=== PATIENT | female | born 1955 | race Caucasian/White ===

== ENCOUNTER 2020-07-03 11:52 | Day surgery (SDC) | payer BC ==
[2020-06-28 18:06] VITALS: BMI 18.8
[2020-07-03] MEDS ORDERED: ROPIVACAINE HCL 0.5% 30ML VIAL ONE (12:02)
[2020-07-03] MEDS ORDERED: MIDAZOLAM HCL 2 MG/2 ML SINGLE DOSE VIAL ONE (12:02)
[2020-07-03] MEDS ORDERED: DEXAMETHASONE SOD PHOSPHATE 10 MG/1 ML VIAL ONE (12:02)
[2020-07-03] MEDS ORDERED: ceFAZolin SODIUM 1 GM VIAL ONE (14:06)
[2020-07-03] MEDS ORDERED: TRANEXAMIC ACID 1000 MG/10 ML VIAL ONE (14:08)
[2020-07-03] MEDS ORDERED: ONDANSETRON 4 MG/2 ML VIAL ONE (14:14)
[2020-07-03] MEDS ORDERED: DEXAMETHASONE SOD PHOSPHATE 4 MG/1 ML VIAL ONE (14:14)
[2020-07-03] MEDS ORDERED: PROPOFOL 20 ML ONE ×6 (14:15→17:32)
[2020-07-03] MEDS ORDERED: BENZOIN/ALOE VERA/STORAX/TOLU 58 ML BOTTLE ONE (16:11)
[2020-07-03] MEDS ORDERED: ONDANSETRON 4 MG/2 ML VIAL IVPUSH PRN (17:51)
[2020-07-03] MEDS ORDERED: MAG HYDROX/AL HYDROX/SIMETH 30 ML UNIT-DOSE CUP PO PRN (17:51)
[2020-07-03] MEDS ORDERED: MAGNESIUM HYDROX 2400MG/30ML ORAL SUSPENSION 30 ML CUP PO PRN (17:51)
[2020-07-03] MEDS ORDERED: LACTATED RINGERS SOLUTION 1,000 ML IV SCH (18:00)
[2020-07-03] MEDS ORDERED: CEFAZOLIN 2 GM/D5W 2 GM/50 ML ML IVPB SCH (18:00)
[2020-07-03] MEDS ORDERED: HYDROmorphone HCL/PF 1 MG/ML VIAL IVPUSH PRN (18:02)
[2020-07-03] MEDS ORDERED: ACETAMINOPHEN 1000 MG/100 ML VIAL (NON FORMULARY) IVPB PRN ×2 (18:02→18:04)
[2020-07-03] MEDS: oxyCODONE HCL 5 MG TABLET PO PRN (21:23)
[2020-07-03] MEDS: SENNOSIDES/DOCUSATE COMBO (SENNA PLUS) TABLET (UD) PO SCH (21:24)
[2020-07-03] MEDS: METOPROLOL TARTRATE 50 MG TABLET (FP) PO SCH (21:24)
[2020-07-03] MEDS: CEFAZOLIN 2 GM/D5W 2 GM/50 ML ML IVPB SCH (23:04)
[2020-07-04] MEDS: oxyCODONE HCL 5 MG TABLET PO PRN ×3 (02:40→16:38)
[2020-07-04] MEDS: CEFAZOLIN 2 GM/D5W 2 GM/50 ML ML IVPB SCH ×2 (05:38→11:29)
[2020-07-04] MEDS ORDERED: ACETAMINOPHEN 1000 MG/100 ML VIAL (NON FORMULARY) IVPB ONE (06:30)
[2020-07-04] MEDS ORDERED: KETOROLAC TROMETHAMINE 15 MG/ML VIAL IVPB ONE (06:30)
[2020-07-04 07:45] LABS: HEMATOCRIT 26.1 % (32.4-45.2); HEMOGLOBIN 8.7 GM/dl (10.7-15.3); MCHC 33.3 g/dl (32.0-36.0); MEAN CELL VOLUME 92.9 fl (80-96); MEAN PLT VOLUME 7.7 fl (7.5-11.1); PLATELET COUNT 334 K/MM3 (134-434); RBC 2.81 M/mm3 (3.60-5.2); RDW 13.9 % (11.6-15.6); WHITE BLOOD COUNT 9.9 K/mm3 (4.0-10.8)
[2020-07-04 07:47] LABS: CALCIUM 8.3 mg/dl (8.5-10); CREATININE 0.6 mg/dl (0.55-1.3)
[2020-07-04] MEDS: METOPROLOL TARTRATE 50 MG TABLET (FP) PO SCH (09:25)
[2020-07-04] MEDS: SENNOSIDES/DOCUSATE COMBO (SENNA PLUS) TABLET (UD) PO SCH (09:25)
[2020-07-04] MEDS ORDERED: PT OWN MED DRAWER 7, Y5N ONE (09:29)
[2020-07-04] MEDS ORDERED: DICYCLOMINE HCL 10 MG CAPSULE PO SCH (10:00)
[2020-07-04] MEDS ORDERED: THIAMINE HCL 100 MG TABLET (FP) PO SCH (10:00)
[2020-07-04] MEDS ORDERED: ASPIRIN 81 MG CHEWABLE TABLETS PO SCH (10:00)
[2020-07-04] MEDS ORDERED: FOLIC ACID 1 MG TABLET (FP) PO SCH (10:00)
[2020-07-04] MEDS ORDERED: PANTOPRAZOLE 40 MG TABLET PO SCH (10:00)
[2020-07-04 14:04] VITALS: BP 132/75; PULSE 80; TEMP 98.4
[2020-07-04] MEDS ORDERED: HEPARIN NA (PORCINE) 5,000 UNITS/ML 1ML VIAL SQ SCH (22:00)
== END 2020-07-04 17:42 | disposition home or self-care (01) ==
LOC: FASU 11:52 → FASUSAT 11:52 → FM/S 17:51 → UNDOADMIN 17:51 → FM/S 17:55 → FASUSAT 07-04 17:42
PROVIDERS: ATTEND Orthopaedic Surgery Adult Reconstructive Orthopaedic Surgery
PROC: 0PSG04Z Reposition Left Humeral Shaft with Internal Fixation Device, Open Approach (ICD-10-PCS; 2020-07-03)
PROC: 0PSD04Z Reposition Left Humeral Head with Internal Fixation Device, Open Approach (ICD-10-PCS; 2020-07-03)
PROC: 0LQ20ZZ Repair Left Shoulder Tendon, Open Approach (ICD-10-PCS; principal; 2020-07-03 14:50)
DX: S42.242D 4-part fracture of surgical neck of left humerus, subsequent encounter for fracture with routine healing (principal); M75.102 Unspecified rotator cuff tear or rupture of left shoulder, not specified as traumatic; Y93.9 Activity, unspecified; Y92.9 Unspecified place or not applicable; Y99.9 Unspecified external cause status
CPT/HCPCS: 23410; 23630; C1713; 36415; 73030-TC-LT-FY; 80048; 85027; 94760; 97116-GP; 97162-GP; J0131; J1100

== ENCOUNTER 2020-08-23 08:36 | Day surgery (SDC) | payer BC ==
[2020-08-17 12:19] VITALS: BMI 18.0
[2020-08-23] MEDS ORDERED: MIDAZOLAM HCL 2 MG/2 ML SINGLE DOSE VIAL ONE ×3 (10:20→11:28)
[2020-08-23] MEDS ORDERED: PROPOFOL 20 ML ONE ×2 (11:28→13:26)
[2020-08-23] MEDS ORDERED: fentaNYL CITRATE 250 MCG/5 ML VIAL ONE (11:28)
[2020-08-23] MEDS ORDERED: DEXAMETHASONE SOD PHOSPHATE 4 MG/1 ML VIAL ONE (12:02)
[2020-08-23] MEDS ORDERED: ONDANSETRON 4 MG/2 ML VIAL ONE ×2 (12:02→13:59)
[2020-08-23] MEDS ORDERED: KETOROLAC TROMETHAMINE 30 MG/1 ML VIAL ONE ×2 (12:02→13:04)
[2020-08-23] MEDS ORDERED: ceFAZolin SODIUM 1 GM VIAL ONE (12:02)
[2020-08-23] MEDS ORDERED: PHENYLEPHRINE HCL 10 MG/1 ML SINGLE DOSE VIAL ONE (12:02)
[2020-08-23] MEDS ORDERED: ePHEDrine SULFATE 50 MG/1 ML AMPULE ONE (12:38)
[2020-08-23] MEDS ORDERED: METOPROLOL TARTRATE 5 MG/5 ML VIAL ONE (12:53)
[2020-08-23] MEDS ORDERED: hydrALAZINE HCL 20 MG/ML VIAL ONE (13:08)
[2020-08-23] MEDS ORDERED: oxyCODONE HCL 5 MG TABLET PO PRN (13:48)
[2020-08-23] MEDS ORDERED: ONDANSETRON 4 MG/2 ML VIAL IVPUSH PRN (13:48)
[2020-08-23] MEDS ORDERED: LACTATED RINGERS SOLUTION 1,000 ML IV SCH (14:00)
[2020-08-23] MEDS ORDERED: ACETAMINOPHEN 1000 MG/100 ML VIAL (NON FORMULARY) IVPB ONE (14:15)
[2020-08-23] MEDS ORDERED: HYDROmorphone HCL/PF 1 MG/ML VIAL ONE (14:26)
[2020-08-23] MEDS ORDERED: HYDROmorphone HCL/PF 1 MG/ML VIAL IVPUSH ONE (14:37)
[2020-08-23] MEDS: oxyCODONE HCL 5 MG TABLET ONE ×2 (14:53→16:40)
[2020-08-23] MEDS ORDERED: HYDROmorphone HCl 2 MG/ML VIAL ONE (16:24)
[2020-08-23] MEDS ORDERED: oxyCODONE HCL 5 MG TABLET ONE (16:30)
[2020-08-23 18:05] VITALS: BP 115/67; PULSE 94; TEMP 97.7
== END 2020-08-23 18:04 | disposition home or self-care (01) ==
LOC: FASU 08:36
PROVIDERS: ATTEND Orthopaedic Surgery Orthopaedic Surgery of the Spine
PROC: 0RNKXZZ Release Left Shoulder Joint, External Approach (ICD-10-PCS; 2020-08-23)
PROC: 0RPJ04Z Removal of Internal Fixation Device from Right Shoulder Joint, Open Approach (ICD-10-PCS; principal; 2020-08-23 12:33)
DX: M24.612 Ankylosis, left shoulder (principal); T84.12 Displacement of internal fixation device of bones of limb
CPT/HCPCS: 88300-TC; 94760; J0131